=== PATIENT | female | born 1980 ===

== ENCOUNTER → 2020-05-16 13:44 | Outpatient (CLI) | payer OTHER, MEDICAID, SELFPAY ==
[2020-05-16 15:17] LABS: Add Manual Diff / Slide Review NO; Basophils Absolute Auto 100 /uL (0-100); Basophils Percent Auto 1.3 % (0-2); Eosinophils Absolute Auto 100 /uL (0-450); Eosinophils Percent Auto 0.8 % (2-4); Hematocrit 38.7 % (36-46); Lymphocytes Absolute Auto 2300 /uL (1100-4500); Mean Corpuscular HGB Conc 33.7 % (30-36); Mean Corpuscular Volume 88.8 fL (80-100); Monocytes Absolute Auto 600 /uL (0-900); Monocytes Percent Auto 6.7 % (3-14); Neutrophils Absolute Auto 6000 /uL (1500-7000); Neutrophils Percent Auto 66.2 % (50-75); Platelet Count 365 X10^3/uL (150-400); Red Blood Cell Count 4.35 X10^6/uL (4.0-5.2); White Blood Cell Count 9.1 X10^3/uL (4.5-11.0)
== END ==
PROVIDERS: Family Provider Internal Medicine; PCP Nurse Practitioner Family; Referring Provider Obstetrics & Gynecology; Visit Provider Obstetrics & Gynecology
DX: Z34.90 Encounter for supervision of normal pregnancy, unspecified, unspecified trimester (principal)
CPT/HCPCS: 36415; 85025; 86850; 86900; 86901

== ENCOUNTER → 2020-07-07 09:18 | Outpatient (CLI) | payer OTHER, MEDICAID, SELFPAY ==
[2020-07-07 10:23] LABS: HCG Quantitative /Beta subunit 1885.1 mIU/mL
== END ==
PROVIDERS: Family Provider Internal Medicine; PCP Nurse Practitioner Family; Referring Provider Nurse Practitioner Family; Visit Provider Obstetrics & Gynecology
DX: Z34.81 Encounter for supervision of other normal pregnancy, first trimester (principal)
CPT/HCPCS: 36415; 84702

== ENCOUNTER → 2020-07-09 10:17 | Outpatient (CLI) | payer OTHER, MEDICAID, SELFPAY ==
[2020-07-09 11:23] LABS: HCG Quantitative /Beta subunit 2169 mIU/mL
== END ==
PROVIDERS: Family Provider Internal Medicine; PCP Nurse Practitioner Family; Referring Provider Obstetrics & Gynecology; Visit Provider Obstetrics & Gynecology
DX: Z34.81 Encounter for supervision of other normal pregnancy, first trimester (principal)
CPT/HCPCS: 36415; 84702

== ENCOUNTER → 2020-07-13 07:57 | Outpatient (CLI) | payer OTHER, MEDICAID, SELFPAY ==
[2020-07-13 09:45] LABS: HCG Quantitative /Beta subunit 296.2 mIU/mL
== END ==
PROVIDERS: Family Provider Internal Medicine; PCP Nurse Practitioner Family; Referring Provider Obstetrics & Gynecology; Visit Provider Obstetrics & Gynecology
DX: O20.9 Hemorrhage in early pregnancy, unspecified (principal)
CPT/HCPCS: 36415; 84702

== ENCOUNTER → 2020-07-15 10:45 | Outpatient (CLI) | payer OTHER, MEDICAID, SELFPAY ==
[2020-07-15 12:22] LABS: HCG Quantitative /Beta subunit 84.9 mIU/mL
== END ==
PROVIDERS: Family Provider Internal Medicine; PCP Nurse Practitioner Family; Referring Provider Obstetrics & Gynecology; Visit Provider Obstetrics & Gynecology
DX: Z34.90 Encounter for supervision of normal pregnancy, unspecified, unspecified trimester (principal)
CPT/HCPCS: 36415; 84702

== ENCOUNTER → 2020-07-22 10:07 | Outpatient (CLI) | payer OTHER, MEDICAID, SELFPAY ==
[2020-07-22 12:16] LABS: HCG Quantitative /Beta subunit 8.5 mIU/mL
== END ==
PROVIDERS: Family Provider Internal Medicine; PCP Nurse Practitioner Family; Referring Provider Obstetrics & Gynecology; Visit Provider Obstetrics & Gynecology
DX: O03.9 Complete or unspecified spontaneous abortion without complication (principal)
CPT/HCPCS: 36415; 84702

== ENCOUNTER → 2020-09-03 12:24 | Outpatient (CLI) | payer OTHER, MEDICAID, SELFPAY ==
[2020-09-03 12:47] LABS: COVID19 -Nasal RAPID Negative (Negative)
== END ==
PROVIDERS: Family Provider Internal Medicine; PCP Nurse Practitioner Family; Referring Provider Physician Assistant; Visit Provider Physician Assistant
DX: Z20.828 Contact with and (suspected) exposure to other viral communicable diseases (principal)
CPT/HCPCS: 87635

== ENCOUNTER → 2020-09-15 10:01 | Outpatient (CLI) | payer OTHER, MEDICAID, SELFPAY ==
[2020-09-15 11:47] LABS: Free T4, Direct Thyroxine 0.96 ng/dL (0.78-2.19)
[2020-09-15 12:01] LABS: Thyroid Stimulating Hormone 2.01 uIU/mL (0.47-4.68)
== END ==
PROVIDERS: Family Provider Internal Medicine; PCP Nurse Practitioner Family; Referring Provider Obstetrics & Gynecology; Visit Provider Obstetrics & Gynecology
DX: Z34.81 Encounter for supervision of other normal pregnancy, first trimester (principal)
CPT/HCPCS: 36415; 84439; 84443

== ENCOUNTER → 2020-10-28 12:39 | Outpatient (CLI) | payer OTHER, MEDICAID, SELFPAY ==
[2020-10-28 14:47] LABS: Urine N gonorrhoeae NOT DETECTED
[2020-10-28 14:50] LABS: Urine Chlamydia NOT DETECTED
== END ==
PROVIDERS: Family Provider Internal Medicine; PCP Nurse Practitioner Family; Visit Provider Obstetrics & Gynecology
DX: Z34.81 Encounter for supervision of other normal pregnancy, first trimester (principal); Z76.89 Persons encountering health services in other specified circumstances; Z3A.10 10 weeks gestation of pregnancy
CPT/HCPCS: 87086; 87491; 87591

== ENCOUNTER → 2020-11-04 11:19 | Outpatient (CLI) | payer OTHER, MEDICAID, SELFPAY ==
[2020-11-04 12:13] LABS: Add Manual Diff / Slide Review NO; Basophils Absolute Auto 100 /uL (0-100); Basophils Percent Auto 1.1 % (0-2); Eosinophils Absolute Auto 0 /uL (0-450); Eosinophils Percent Auto 0.4 % (2-4); Hematocrit 36.3 % (36-46); Hemoglobin 12.4 g/dL (12.0-16.0); Lymphocytes Absolute Auto 1400 /uL (1100-4500); Lymphocytes Percent Auto 15.4 % (25-40); Mean Corpuscular HGB Conc 34.2 % (30-36); Mean Corpuscular Volume 87.6 fL (80-100); Monocytes Absolute Auto 500 /uL (0-900); Monocytes Percent Auto 5.2 % (3-14); Neutrophils Absolute Auto 7200 /uL (1500-7000); Neutrophils Percent Auto 77.9 % (50-75); Platelet Count 309 X10^3/uL (150-400); Red Blood Cell Count 4.14 X10^6/uL (4.0-5.2); Red Cell Distribution Width 13.2 % (11.6-14.8); White Blood Cell Count 9.2 X10^3/uL (4.5-11.0)
[2020-11-04 12:39] LABS: Appearance Urine UA CLEAR; Bilirubin Urine UA NEGATIVE (NEGATIVE); Color Urine UA YELLOW; Glucose Urine UA NEGATIVE (Negative); Ketones Urine UA NEGATIVE (NEGATIVE); Leukocyte Esterase Urine UA NEGATIVE (NEGATIVE); Nitrite Urine UA NEGATIVE (Negative); Occult Blood Urine UA NEGATIVE (Negative); Protein Urine UA NEGATIVE (Negative); Specific Gravity Urine UA <=1.005 (1.000-1.035); Urobilinogen Urine UA 0.2 E.U./dL (0.2)
[2020-11-04 12:47] LABS: pH Urine UA 6.5 (4.5-8.0)
[2020-11-04 14:01] LABS: Hepatitis B Surface Antigen NEGATIVE s/c (NEGATIVE); Rubella Antibody IgG 6.3 IU/mL (>15)
[2020-11-04 14:16] LABS: HIV 1 & 2 Ab/Ag 4th Gen Combo NEGATIVE (NEGATIVE); Hep C Virus Ab w/Reflex Quant NEGATIVE s/c (NEGATIVE)
[2020-11-05 09:15] LABS: RPR Screen Non Reactive (Non Reactive); Varicella IgG Antibody 530 index (Immune >165)
== END ==
PROVIDERS: Family Provider Internal Medicine; PCP Nurse Practitioner Family; Referring Provider Obstetrics & Gynecology; Visit Provider Obstetrics & Gynecology
DX: O09.521 Supervision of elderly multigravida, first trimester (principal); O26.21 Pregnancy care for patient with recurrent pregnancy loss, first trimester; Z36.0 Encounter for antenatal screening for chromosomal anomalies
CPT/HCPCS: 36415; 80055; 81003; 81420; 86787; 86803; 87086; 87389

== ENCOUNTER → 2021-01-06 10:47 | Outpatient (CLI) | payer OTHER, MEDICAID, SELFPAY ==
--- NOTE | 2021-01-06 10:48 | DI.US.S_ITS ---
PROCEDURE: US OB >= 14 WEEKS FETUS INDICATIONS: 20 week anatomy scan OUTSIDE/PRIOR DATING DATA: First dating scan (date and location): 09/30/2020 . Estimated date of delivery (ITZEL) from first dating scan: 05/24/2021 . TECHNIQUE: Real-time scanning was performed of the fetus, with image documentation and biometric measurements. Endovaginal scanning: No COMPARISON: [facility], , OB >= 14 WEEKS FETUS, 11/25/2020, 16:34. FINDINGS: General: A single living intrauterine gestation is present. Presentation: Breech. Placenta: Placental position is posterior , without previa. Amniotic fluid index: 10.5 cm, normal range is 5-24 cm. heart rate: 137 beats per minute. Maternal cervical canal: 4.9 cm long. Normal lower limit is 2.5 cm. Delete biometrics: Biparietal diameter: 20 weeks 4 days Head circumference: 20 weeks 2 days Abdominal circumference: 20 weeks 1 day Femur length: 20 weeks 1 day Estimated gestational age from initial scan: 20 weeks 1 day Composite gestational age from present scan: 20 weeks 2 days Estimated weight and percentile: 337 g; 47 percentile Measurement variability for biometric dating: +/- 7 days from 14 weeks to 15 weeks 6 days gestation, +/- 10 days from 16 weeks to 21 weeks 6 days gestation, +/- 2 weeks from 22 weeks to 27 weeks 6 days gestation, +/- 3 weeks for 28 weeks gestation or later. weight reference: 4500 g or EFW >90/95% is considered macrosomia or large for gestational age. EFW <10% is small for gestational age. EFW 5% or less is considered intra-uterine growth restriction. Anatomic survey: Neuro: Ventricles are non-dilated at less than 10 mm. Cisterna magna is normal at 3-11 mm. Cerebellum is normal in size and morphology. Nuchal skin fold: Normal at less than 6 mm between 14-21 weeks gestational age. Face: Nose and lips, facial profile are normal. Spine: No evidence for spina bifida. Heart: 4-chambered heart is present, with normal ventricular outflow tracts. Diaphragm: Diaphragm is intact. Stomach: Left-sided stomach is present. Kidneys: No hydronephrosis. Normal is less than 5 mm in 2nd trimester, less than 7 mm in 3rd trimester. Cord: 3-vessel cord has orthotopic insertion. Bladder: Normal in size. Extremities: All 4 extremities identified. IMPRESSION: 1. Normal interval growth. 2. Normal anatomic survey. Dictated by: Kamaljit Diallo [facility] Interpreted: Kalpesh Whitley MD on 01/06/2021 at 14:25 Approved by: Kalpesh Whitley M.D. on 01/06/2021 at 16:04
== END ==
PROVIDERS: Family Provider Internal Medicine; PCP Nurse Practitioner Family; Referring Provider Obstetrics & Gynecology; Visit Provider Obstetrics & Gynecology
DX: Z34.82 Encounter for supervision of other normal pregnancy, second trimester (principal); Z3A.20 20 weeks gestation of pregnancy
CPT/HCPCS: 76811

== ENCOUNTER → 2021-02-17 10:14 | Outpatient (CLI) | payer OTHER, MEDICAID, SELFPAY ==
[2021-02-17 12:14] LABS: GTT (PREG) 1 Hour PP 50gm Dose 132 mg/dL (76-139); Hematocrit 34.3 % (36-46); Hemoglobin 11.6 g/dL (12.0-16.0)
== END ==
PROVIDERS: Family Provider Internal Medicine; PCP Nurse Practitioner Family; Referring Provider Obstetrics & Gynecology; Visit Provider Obstetrics & Gynecology
DX: Z34.92 Encounter for supervision of normal pregnancy, unspecified, second trimester (principal)
CPT/HCPCS: 36415; 82950; 85014; 85018

== ENCOUNTER → 2021-04-07 13:08 | Outpatient (CLI) | payer OTHER, MEDICAID, SELFPAY ==
--- NOTE | 2021-04-07 13:09 | DI.US.S_ITS ---
PROCEDURE: US OB LIMITED INDICATIONS: Growth Ultrasound OUTSIDE/PRIOR DATING DATA: Last menstrual period (LMP): Not available. LMP-based estimated date of delivery (ITZEL): Not available First dating scan (date and location): 09/30/20 Estimated date of delivery (ITZEL) from first dating scan: 05/25/21 TECHNIQUE: Real-time scanning was performed of the fetus, with image documentation and biometric measurements. Endovaginal scanning: Not needed COMPARISON: Prior OB ultrasound studies for this . FINDINGS: General: A single living intrauterine gestation is present. Presentation: Breech. Placenta: Placental position is posterior , without previa. Amniotic fluid index: 12.6 cm, normal range is 5-24 cm. heart rate: 147 beats per minute. Maternal cervical canal: Not well seen due to deep vertex presentation of the fetus. biometrics: Biparietal diameter: 8.1 cm, 32 weeks 4 days Head circumference: 30.5 cm, 33 weeks 6 days Abdominal circumference: 27.3 cm, 31 weeks 3 days Femur length: 6.3 cm, 32 weeks 4 days Estimated gestational age from initial scan: 33 weeks 2 days Composite gestational age from present scan: 32 weeks 4 days Estimated weight and percentile: 1902 g, 13th percentile Measurement variability for biometric dating: +/- 7 days from 14 weeks to 15 weeks 6 days gestation, +/- 10 days from 16 weeks to 21 weeks 6 days gestation, +/- 2 weeks from 22 weeks to 27 weeks 6 days gestation, +/- 3 weeks for 28 weeks gestation or later. weight reference: 4500 g or EFW >90/95% is considered macrosomia or large for gestational age. EFW <10% is small for gestational age. EFW 5% or less is considered intra-uterine growth restriction. Other: Not applicable. IMPRESSION: Appropriate interval growth, no anomaly seen. The current weight is 1902 g, at the 13th percentile for current gestational age open (normal). Normal amniotic fluid volume. Delivery date projected to be centered on 05/24/21. Dictated by: Tony Isabel M.D. on 04/07/2021 at 14:50 Approved by: Tony Isabel M.D. on 04/07/2021 at 14:53
== END ==
PROVIDERS: Family Provider Internal Medicine; PCP Nurse Practitioner Family; Referring Provider Obstetrics & Gynecology; Visit Provider Obstetrics & Gynecology
DX: Z34.83 Encounter for supervision of other normal pregnancy, third trimester (principal); Z3A.32 32 weeks gestation of pregnancy
CPT/HCPCS: 76815

== ENCOUNTER 2021-04-07 15:15 | Outpatient (CLI) | payer OTHER, MEDICAID, SELFPAY ==
--- NOTE | 2021-04-07 15:21 | DI.US.S_ITS ---
PROCEDURE: US OB LIMITED INDICATIONS: INTRAUTERINE GROWTH RESTRICTION. CORD DOPPLER/BIOPHYSICAL OUTSIDE/PRIOR DATING DATA: Last menstrual period (LMP): Unknown. LMP-based estimated date of delivery (ITZEL): Unknown. First dating scan (date and location): 09/30/2020. Estimated date of delivery (ITZEL) from first dating scan: 05/25/2021. TECHNIQUE: Real-time scanning was performed of the fetus, with image documentation. Biophysical profile performed. Umbilical artery Doppler also performed. Endovaginal scanning: Not performed. COMPARISON: [facility], OB LIMITED, 04/07/2021, 13:29. FINDINGS: A single living intrauterine gestation is present. Presentation: Breech. Placenta: Placental position is posterior. Amniotic fluid index: 12.1 cm, normal range is 5-24 cm. heart rate: 139 beats per minute. Maternal cervical canal: Not well seen. Estimated gestational age from initial scan: 33 weeks 2 days. Biophysical profile: Tone: 2: Movement: 2 Respiration: 2 Largest pocket: 2 Umbilical artery S/D ratio: 2.4, 2.6, 2.4. Preserved diastolic flow. IMPRESSION: 1. Napoles living intrauterine at 33 weeks 2 days based on prior ultrasound. 2. Normal placenta and amniotic fluid. 3. Normal biophysical profile. Score 8/8. Umbilical artery Doppler is within normal limits. Dictated by: Patrick Robertson M.D. on 04/07/2021 at 16:32 Approved by: Patrick Robertson M.D. on 04/07/2021 at 16:39
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
== END 2021-04-07 16:49 | disposition home or self-care (01) ==
LOC: LABOR 16:08 → OB 04-11 07:45
PROVIDERS: Family Provider Internal Medicine; PCP Nurse Practitioner Family; Referring Provider Obstetrics & Gynecology; Visit Provider Obstetrics & Gynecology
DX: O36.5930 Maternal care for other known or suspected poor fetal growth, third trimester, not applicable or unspecified (principal); O09.523 Supervision of elderly multigravida, third trimester; Z3A.34 34 weeks gestation of pregnancy
CPT/HCPCS: 59025; 76815; 76819; G0378; G0379

== ENCOUNTER → 2021-04-21 09:27 | Outpatient (CLI) | payer OTHER, MEDICAID, SELFPAY ==
[2021-04-22 10:25] LABS: Strep Grp B PCR NEG for Grp B Strep
== END ==
PROVIDERS: Family Provider Internal Medicine; PCP Nurse Practitioner Family; Referring Provider Obstetrics & Gynecology; Visit Provider Obstetrics & Gynecology
DX: Z34.03 Encounter for supervision of normal first pregnancy, third trimester (principal); Z3A.36 36 weeks gestation of pregnancy
CPT/HCPCS: 87653

== ENCOUNTER 2021-04-21 11:03 | Outpatient (CLI) | payer OTHER, MEDICAID, SELFPAY | END 2021-04-21 11:43 | disposition home or self-care (01) | LOC: LABOR 11:10 → OB 04-24 09:48 | PROVIDERS: Family Provider Internal Medicine; PCP Nurse Practitioner Family; Referring Provider Obstetrics & Gynecology; Visit Provider Obstetrics & Gynecology | DX: O36.5930 Maternal care for other known or suspected poor fetal growth, third trimester, not applicable or unspecified (principal); O09.513 Supervision of elderly primigravida, third trimester; Z3A.36 36 weeks gestation of pregnancy | CPT/HCPCS: 59025; 87653; G0378; G0379 ==

== ENCOUNTER → 2021-04-25 10:09 | Outpatient (CLI) | payer OTHER, MEDICAID, SELFPAY ==
--- NOTE | 2021-04-25 10:11 | DI.US.S_ITS ---
PROCEDURE: US OB LIMITED INDICATIONS: GROWTH OUTSIDE/PRIOR DATING DATA: Last menstrual period (LMP): Unknown . LMP-based estimated date of delivery (ITZEL): Unknown First dating scan (date and location): 09/30/20 . Estimated date of delivery (ITZEL) from first dating scan: 05/22/21 . TECHNIQUE: Real-time scanning was performed of the fetus, with image documentation and biometric measurements. Endovaginal scanning: Not performed COMPARISON: [facility], OB LIMITED, 04/07/2021, 13:29. [facility], OB >= 14 WEEKS FETUS, 01/06/2021, 10:11. [facility] OB >= 14 WEEKS FETUS, 11/25/2020, 16:34. [facility] OB <= 14 WEEKS FETUS, 10/28/2020, 9:05. [facility], OB <= 14 WEEKS FETUS, 09/30/2020, 11:31. [facility] OB LIMITED, 04/07/2021, 15:40. FINDINGS: General: A single living intrauterine gestation is present. Presentation: Breech. Placenta: Placental position is posterior , without previa. Amniotic fluid index: 6.9 cm, normal range is 5-24 cm. Largest pocket measures 3.6 cm heart rate: 126 beats per minute. Maternal cervical canal: Not well visualized sonographically. biometrics: Biparietal diameter: 8.4 cm, 33 weeks 5 days Head circumference: 31.5 cm, 35 weeks 2 days Abdominal circumference: 29.4 cm, 33 weeks 2 days Femur length: 7.1 cm, 36 weeks 2 days Estimated gestational age from initial scan: 36 weeks 1 day Composite gestational age from present scan: 34 weeks 5 days Estimated weight and percentile: 2431 g, 13th percentile Measurement variability for biometric dating: +/- 7 days from 14 weeks to 15 weeks 6 days gestation, +/- 10 days from 16 weeks to 21 weeks 6 days gestation, +/- 2 weeks from 22 weeks to 27 weeks 6 days gestation, +/- 3 weeks for 28 weeks gestation or later. weight reference: 4500 g or EFW >90/95% is considered macrosomia or large for gestational age. EFW <10% is small for gestational age. EFW 5% or less is considered intra-uterine growth restriction. Other: Not applicable. IMPRESSION: Single living intrauterine fetus in breech presentation. KIM measures 6.9 cm. Estimated weight 2431 g, 13th percentile. Dictated by: Koko Smith M.D. on 04/25/2021 at 11:51 Approved by: Koko Smith M.D. on 04/25/2021 at 11:54
== END ==
PROVIDERS: Family Provider Internal Medicine; PCP Nurse Practitioner Family; Referring Provider Obstetrics & Gynecology; Visit Provider Obstetrics & Gynecology
DX: O36.5930 Maternal care for other known or suspected poor fetal growth, third trimester, not applicable or unspecified (principal); Z3A.34 34 weeks gestation of pregnancy
CPT/HCPCS: 76815

== ENCOUNTER 2021-04-28 11:53 | Observation (INO) | payer OTHER, MEDICAID, SELFPAY ==
[2021-04-28] MEDS: TERBUTALINE 1 MG/ML VIAL 0.25 MG SUBCUT (12:56)
--- NOTE | 2021-04-28 13:14 | PM.PROC.1 ---
Procedures Date/Time Date of procedure: 04/28/21 Time of procedure: 13:15 General Procedure description: Patient comes in at 36 weeks with breech presentation fetus for external cephalic version. Patient had a reactive nonstress test. She had a IV access placed. She received 0.25 mg terbutaline subQ. Ultrasound was done that confirms breech presentation. Posterior placenta. Fluid is adequate but not excessive. Consent form was reviewed with the patient. She understands the baby may not turn. She understands that if the baby does not turn she will need a . There is a risk of onset of labor, placental separation or rupture membranes that could require delivery of the baby at this hospitalization. Consent form signed and questions answered. Attempt x2 was made to turn the baby without any significant motion of the baby. Decision was made not to do a 3rd attempt. Patient will be monitored for 1 hour. When she goes home precautions reviewed to call for decreased movement, vaginal bleeding, rupture membranes, onset of contractions. Patient will be scheduled for section
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
== END 2021-04-28 14:30 | disposition home or self-care (01) ==
PROVIDERS: Admitting Provider Specialist; Family Provider Internal Medicine; PCP Nurse Practitioner Family; Referring Provider Specialist; Visit Provider Specialist
DX: O32.1XX0 Maternal care for breech presentation, not applicable or unspecified (principal); O36.5930 Maternal care for other known or suspected poor fetal growth, third trimester, not applicable or unspecified; Z3A.37 37 weeks gestation of pregnancy
CPT/HCPCS: 59025; 59412; 76815; 96372; G0378; G0379

== ENCOUNTER 2021-05-05 15:02 | Outpatient (CLI) | payer OTHER, MEDICAID, SELFPAY | END 2021-05-05 15:44 | disposition home or self-care (01) | LOC: LABOR 15:48 → OB 05-08 13:03 | PROVIDERS: Family Provider Internal Medicine; PCP Nurse Practitioner Family; Referring Provider Obstetrics & Gynecology; Visit Provider Obstetrics & Gynecology | DX: O36.8130 Decreased fetal movements, third trimester, not applicable or unspecified (principal); Z3A.38 38 weeks gestation of pregnancy | CPT/HCPCS: 59025; G0378; G0379 ==

== ENCOUNTER 2021-05-12 05:53 | Inpatient (IN) | payer OTHER, MEDICAID, SELFPAY ==
[2021-05-12 06:43] LABS: Add Manual Diff / Slide Review NO; Basophils Absolute Auto 100 /uL (0-100); Basophils Percent Auto 0.9 % (0-2); Eosinophils Absolute Auto 0 /uL (0-450); Eosinophils Percent Auto 0.5 % (2-4); Hematocrit 34.5 % (36-46); Hemoglobin 11.9 g/dL (12.0-16.0); Lymphocytes Absolute Auto 2000 /uL (1100-4500); Mean Corpuscular HGB Conc 34.4 % (30-36); Mean Corpuscular Hemoglobin 30.2 PG (26-34); Mean Corpuscular Volume 87.7 fL (80-100); Monocytes Absolute Auto 700 /uL (0-900); Monocytes Percent Auto 7.4 % (3-14); Neutrophils Absolute Auto 7000 /uL (1500-7000); Neutrophils Percent Auto 71.2 % (50-75); Platelet Count 224 X10^3/uL (150-400); Red Blood Cell Count 3.94 X10^6/uL (4.0-5.2); Red Cell Distribution Width 13.3 % (11.6-14.8); White Blood Cell Count 9.8 X10^3/uL (4.5-11.0)
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
[2021-05-12] MEDS: LACTATED RINGERS 1,000 ML 999 ML IV ×3 (07:14→10:28)
[2021-05-12] MEDS: CITRIC ACID/SODIUM CITRATE 15 ML SOLUTION 30 ML PO (07:14)
--- NOTE | 2021-05-12 07:16 | SUR.OPER ---
Supine on Padded OR bed, head on pillow, safety belt at thigh, arms secured on padded arm boards at <90 degrees abduction. Bump under right buttock. Legs uncrossed with pillow under knees, gel pad to heels, tape over blanket to lower legs.
--- NOTE | 2021-05-12 07:27 | PM.PREOP ---
Pre-operative Note COVID-19 COVID-19 status: Negative Result date/Date tested (Pos, Neg/Pending): 05/12/21 Interval Note History & Physical reviewed/Exam performed by Physician: Yes Changes to H&P: No
[2021-05-12 07:29] LABS: COVID19 - ADMIT (NP swab/PCR) Negative (Negative)
[2021-05-12] MEDS: CEFAZOLIN 1 GM VIAL 2 GM IV (07:56)
--- NOTE | 2021-05-12 08:27 | SUR.OPER ---
Live female at [id number]
[2021-05-12 09:05] VITALS: BP 95/64; PULSE 68; RESP 10; TEMP 35.8; O2SAT 100
[2021-05-12 09:10] VITALS: BP 104/62; PULSE 72; RESP 18; O2SAT 100
[2021-05-12 09:15] VITALS: BP 96/57; PULSE 77; RESP 12; O2SAT 100
[2021-05-12 09:20] VITALS: BP 108/64; PULSE 69; RESP 10; O2SAT 99
[2021-05-12] MEDS: OXYCODONE IR 5 MG TABLET PO (09:21)
[2021-05-12 09:25] VITALS: BP 112/63; PULSE 72; RESP 14; O2SAT 100
--- NOTE | 2021-05-12 09:31 | P.OP_ITS ---
Operative Date/Time/Diagnoses Date of procedure: 05/12/21 Time of procedure: 08:00 Pre-op diagnosis: Intrauterine gestation, Napoles, term, breech presentation Post-op diagnosis: same Procedure & Clinicians Procedure: Primary section, low transverse cervical Same procedure as scheduled: Yes Indications: Logan Garcia is a 40 year old A2 ITZEL 05/19/2021 admitted now at 39+0 for primary due to persistent breech presentation following an unsuccessful attempt at ECV two weeks ago. course has been notable for AMA status and an SGA infant with reassuring assessments to date. Surgeon: Gutierrez Barksdale Scientific Advisor: Tamar Ruffin Reason for Scientific Advisor: Scientific Advisor required for retraction, and the safe, efficient performance of this procedure. Anesthesia Type: Spinal Operative Notes Findings: Viable female with a birthweight of 2924 gms (6# 7.1 oz.) and Apgars of 8/9. Closure Type: primary Applied: Catheter Estimated Blood Loss (mL): 400 Blood products transfused: none Procedure in detail: With the patient under satisfactory spinal block anesthetic in the dorsal supine position, the Carey catheter was inserted in the bladder and preparations made for primary delivery. A pre-surgical safety time-out was taken her [facility] Main OR protocol. Once adequate anesthesia was assured a 14 cm transverse Pfannenstiel incision was made in the skin and carried down to the deep fascia. The deep fascia was incised transversely the rectus abdominal I bluntly and the peritoneum entered sharply without difficulty. The bladder was mobilized downward after creation of the bladder flap and hysterotomy performed with clear fluid noted. The infant was delivered from the marilu breech presentation without difficulty and after 60 seconds delay, the umbilical cord was doubly clamped and cut. Cord blood was obtained for routine testing and the placenta was removed with gentle traction on the cord and massage of the uterus. The endometrial cavity was cleared with a dry lap followed by a moist lap. Ring forceps were placed at both angles and in the midline of the lower portion of the hysterotomy incision. #1 Chromic in a running interlocking stitch was used for the 1st layer closure followed by a #1 Chromic with a running interlocking imbricating suture. The bladder flap was closed with 2 0 Vicryl in a running stitch. Hemostasis was excellent and no additional hemostatic sutures required. The pelvis was irrigated thoroughly and absent any significant bleeding the anterior peritoneum was closed with 2-0 Vicryl in a running stitch. Fascia was closed with 1. Vicryl initiated at either angle and tying separately no the midline. Subcutaneous tissues were brought together with 2-0 Vicryl in running stitch and the skin was closed with 4-0 Monocryl in a subcuticular closure. Appropriate dressing was applied and the patient transferred to PACU for a period of recovery having tolerated the procedure well. Complications: none [place] Baby 1: Infant Gender: Female Presentation: breech Details: marilu Placental Delivery Description: Expressed and Normal Configuration Cord Vessel Description: 3 Vessels score (1 min): 8 score (5 min): 9 weight: 6 lb 7.141 oz Post-operative Condition: stable Disposition: PACU Aftercare: routine postop
[2021-05-12 09:36] VITALS: BP 113/58; PULSE 60; RESP 17; TEMP 35.9; O2SAT 100
--- NOTE | 2021-05-12 10:10 | SUR.PHASEI ---
PATIENT TRANSF TO RM 2 IN STABLE CONDITION AT 0938
[2021-05-12] MEDS: OXYCODONE IR 10 MG TABLET PO ×3 (13:38→23:17)
[2021-05-12] MEDS: ONDANSETRON 8 MG in SODIUM CHLORIDE 0.9% 100 ML 208 ML IV (16:49)
[2021-05-12] MEDS: ACETAMINOPHEN 325 MG TABLET 650 MG PO (19:13)
[2021-05-12] MEDS: CALCIUM CARBONATE 500 MG TAB 1000 MG PO (21:08)
[2021-05-12] MEDS: MORPHINE 4 MG/ML INJ IV (21:10)
[2021-05-12] MEDS: diphenhydrAMINE 50 MG/ML VIAL 25 MG IV (21:10)
[2021-05-13] MEDS: ACETAMINOPHEN 325 MG TABLET 650 MG PO ×4 (02:39→20:45)
[2021-05-13] MEDS: OXYCODONE IR 10 MG TABLET PO ×5 (03:20→22:05)
[2021-05-13] MEDS: DOCUSATE 100 MG CAPSULE 200 MG PO (07:42)
[2021-05-13 09:21] LABS: Add Manual Diff / Slide Review NO; Basophils Absolute Auto 100 /uL (0-100); Basophils Percent Auto 0.5 % (0-2); Eosinophils Absolute Auto 100 /uL (0-450); Eosinophils Percent Auto 0.5 % (2-4); Hematocrit 33.2 % (36-46); Hemoglobin 11.2 g/dL (12.0-16.0); Lymphocytes Absolute Auto 1800 /uL (1100-4500); Lymphocytes Percent Auto 14.7 % (25-40); Mean Corpuscular HGB Conc 33.7 % (30-36); Mean Corpuscular Hemoglobin 30.1 PG (26-34); Mean Corpuscular Volume 89.3 fL (80-100); Monocytes Absolute Auto 800 /uL (0-900); Monocytes Percent Auto 6.4 % (3-14); Neutrophils Absolute Auto 9300 /uL (1500-7000); Neutrophils Percent Auto 77.9 % (50-75); Platelet Count 228 X10^3/uL (150-400); Red Blood Cell Count 3.71 X10^6/uL (4.0-5.2); Red Cell Distribution Width 13.3 % (11.6-14.8)
[2021-05-13] MEDS: PRENATAL VIT,CALC/IRON/FOLIC 1 TABLET 1 TAB PO (09:32)
--- NOTE | 2021-05-13 10:31 | P.PNOB_ITS ---
Subjective - OB Subjective Patient comments: incisional pain baby status: doing well feeding status: exclusively breast feeding Date Patient Seen: 05/13/21 Time Patient Seen: 10:32 Interval history: Postoperative primary section for breech presentation. Patient is is ambulatory. She is having incisional pain. She denies nausea. No headaches, scotomata, epigastric pain. Exam Vital Signs (past 8 hours): Blood pressure 126/78, pulse is 74, temperature 98.8? Oxygen Delivery Method Room Air Oxygen Flow Rate 0 Narrative Exam Narrative: Abdomen is soft, nontender. Uterus is firm, at U-1, appropriately tender. Dressing is clean, dry, intact. Mild lochia. Extremities without edema and nontender. Objective Labs Result Diagrams: 05/13/21 09:15 Labs: Laboratory Results - last 24 hr 05/13/21 09:15 WBC 12.0 H RBC 3.71 L Hgb 11.2 L Hct 33.2 L MCV 89.3 MCH 30.1 MCHC 33.7 RDW 13.3 Plt Count 228 Neut % (Auto) 77.9 H Lymph % (Auto) 14.7 L [place] % (Auto) 6.4 Eos % (Auto) 0.5 L Baso % (Auto) 0.5 Neut # (Auto) 9300 H Lymph # (Auto) 1800 [place] # (Auto) 800 Eos # (Auto) 100 Baso # (Auto) 100 Assessment & Plan Assessment and Plan (1) Delivery by section for breech presentation: Status: Acute Plan day: 1 plan OB: routine postop care Time Spent With Patient Time: Total time spent is greater than 50% in coordination of care (as documented) at patient's floor/unit and/or counseling patient: Time with patient: less than 15 minutes
[2021-05-13] MEDS: SIMETHICONE 80 MG TABLET PO (11:28)
[2021-05-13] MEDS: OXYCODONE IR 5 MG TABLET PO (14:32)
[2021-05-13] MEDS: CALCIUM CARBONATE 500 MG TAB 1000 MG PO (20:18)
[2021-05-14] MEDS: ACETAMINOPHEN 325 MG TABLET 650 MG PO ×3 (02:16→14:39)
[2021-05-14] MEDS: OXYCODONE IR 10 MG TABLET PO ×5 (02:16→18:16)
[2021-05-14] MEDS: SIMETHICONE 80 MG TABLET PO (02:20)
[2021-05-14 07:13] VITALS: BP 113/58; PULSE 60; RESP 17; TEMP 35.9
[2021-05-14] MEDS: DOCUSATE 100 MG CAPSULE 200 MG PO (08:57)
[2021-05-14] MEDS: PRENATAL VIT,CALC/IRON/FOLIC 1 TABLET 1 TAB PO (08:57)
--- NOTE | 2021-05-14 09:50 | P.DS_ITS ---
Discharge Providers Provider Date of admission: 05/12/21 05:53 Discharge Date: 05/14/21 Primary care physician: KASIE Law Consults: 05/12/21 11:23 Consult to Statement Services Representative Routine Comment: Discharge provider: Gutierrez Barksdale MD Summary Hospital Course Date Patient Seen: 05/14/21 Time Patient Seen: 09:51 Diagnoses: Intrauterine , Napoles, term, breech presentation, delivered Hospital Course: On the morning of 05/12/2021 the patient underwent an uneventful primary section by low transverse cervical incision due to persistent breech presentation following a failed external cephalic version at 37 weeks EGA, she delivered a viable female Apgars of 8 and 9 with a weight of 2924 g (6 lb 7.1 oz). A detailed description of the operation is included on my operative note of that date. Following delivery the patient excessive experienced prompt return of bowel and bladder function, she is ambulating independently, is tolerating regular diet, and her pain is reasonably well controlled with 10 mg of Oxycodone every 4 hours orally. First morning hemoglobin and hematocrit were appropriate for observed blood losses and her lochia following delivery is been minimal. She has initiated which seems to be going reasonably well but her infant has lost nearly 400 g and may remain in the nursery under care following the patient is discharged to [facility]. Prior to discharge she has been counseled regarding precautionary symptoms, limitations activity, medications, and plans for follow- up. Medications at discharge will include calcium carbonate 1000 mg p.o. as n eeded heartburn, docusate sodium 100 mg capsules p.o. b.i.d. as needed constipation vitamins 1 p.o. q.d., and Percocet 1-2 tablets every 4-6 hours as needed pain, dispense 45 with no refills. Follow-up will be in 1 week for removal of the Aquacel dressing and incision check at that time. Her chosen mode of contraception following delivery is not yet been decided. Peripartum Data Infant Delivery Method: Section Laceration Description: None Episiotomy description: None complications: none [place] 1: Gender: Female Disposition of : other (Remains in nursery due to weight loss) Discharge Diagnosis (1) Delivery by section for breech presentation: Status: Acute Status at Discharge Cognitive/behavioral status at discharge: oriented Functional status at discharge: independent ambulation Overall status at discharge: patient is progressing back to baseline Time Spent with Patient Time attestation: Total time spent providing and/or coordinating discharge services: Time spent: Less than 30 minutes Objective Labs Result Diagrams: 05/13/21 09:15 Exam Vital Signs (past 8 hours): Oxygen Delivery Method Room Air Oxygen Flow Rate 0 Const General: cooperative Nutritional Appearance: average body habitus Orientation: alert and oriented x3 HENMT Head: normal to inspection Eyes General: appearance normal, both eyes and all related structures Resp Effort & Inspection: normal respiratory effort and able to speak in complete sentences Auscultation: clear to auscultation bilaterally Cardio Rate: regular rate Rhythm: regular rhythm Heart Sounds: S1 normal, S2 normal and no murmurs GI Inspection: normal to inspection and incision (Dressing dry and intact. Fresh A quacel dressing applied prior to D/C.) Palpation: soft, no hepatosplenomegaly, mass (Firm NT uterus, U-6) and tender (Diffuse, mild to moderate, bilateral lower quadrant) Auscultation: normoactive bowel sounds Extrem General: No calf tenderness and edema (Minimal, bilateral lower extremities) Psych Appearance: grossly normal Mental Status: mental status grossly normal Speech and Movement: speech and movement normal Mood: congruent mood Affect: normal affect Attitude: cooperative Thought Process: normal Thought Content: normal Judgment: judgment good Discharge Plan Discharge Plan Patient Disposition: Home Provider Discharge Comment: See written instructions. Your follow-up will be in 1 week to remove the incision dressing and evaluate for pain control and recuperation progress. Discharge orders & Medications Prescriptions: New oxycodone-acetaminophen [Percocet] 5-325 mg tablet 1 tab PO Q4H PRN (Reason: pain) Qty: 45 RF: 0 Continued prenat.vits,ger,lbd-mnck-cygwd Tablet 1 tab PO DAILY Qty: 90 RF: 3 calcium carbonate [Tums Ultra] 400 mg calcium (1,000 mg) tablet,chewable 400 mg PO DAILY RF: 0 docusate sodium 100 mg capsule 100 mg PO BID Qty: 60 RF: 2 Follow up/Referrals: Sarah Grove ARNP [Primary Care Provider] - Gutierrez Barksdale MD [Physician] - (To make an appointment for [address] Barksdale for dressing removal. Call [phone] ) Diet/Activity/Treatments Diet: Diet as Tolerated Activity: As tolerated Skin/Wound/Dressing Care Report to your healthcare provider any signs of infection, such as:: chills, fever, increased pain, unusual drainage and unusual redness Dressing: To be removed in the office in 1 week Visit Report/Discharge Packet Instructions: DI for , DI for Prescription Opioid Use Stand Alone Forms: Discharge: Care Discharge Data Primary Care Provider: Sarah Grove
[2021-05-14 18:10] VITALS: BP 113/58; PULSE 60; RESP 17; TEMP 35.9
== END 2021-05-14 19:00 | disposition home or self-care (01) | DRG 540 ==
PROVIDERS: Admitting Provider Obstetrics & Gynecology; Family Provider Internal Medicine; PCP Nurse Practitioner Family; Referring Provider Obstetrics & Gynecology; Visit Provider Obstetrics & Gynecology
PROC: 10D00Z1 Extraction of Products of Conception, Low, Open Approach (ICD-10-PCS; CPT 59514; principal; 2021-05-12 07:45)
DX: O64.1XX0 Obstructed labor due to breech presentation, not applicable or unspecified (principal); Z3A.39 39 weeks gestation of pregnancy; Z37.0 Single live birth; Z20.822 Contact with and (suspected) exposure to COVID-19
CPT/HCPCS: 36415; 59050; 59514; 85025; 86850; 86900; 86901; 87635; C9803; J0690; J1200; J1885; J2270; J2274; J2405; J2590

== ENCOUNTER → 2021-05-27 11:50 | Outpatient (CLI) | payer OTHER, MEDICAID, SELFPAY ==
[2021-05-27 13:18] LABS: Appearance Urine UA CLEAR; Bilirubin Urine UA NEGATIVE (NEGATIVE); Color Urine UA YELLOW; Glucose Urine UA NEGATIVE (Negative); Ketones Urine UA NEGATIVE (NEGATIVE); Leukocyte Esterase Urine UA NEGATIVE (NEGATIVE); Nitrite Urine UA NEGATIVE (Negative); Occult Blood Urine UA NEGATIVE (Negative); Protein Urine UA NEGATIVE (Negative); Specific Gravity Urine UA <=1.005 (1.000-1.035); Urobilinogen Urine UA 0.2 E.U./dL (0.2)
[2021-05-27 13:19] LABS: pH Urine UA 6.5 (4.5-8.0)
== END ==
PROVIDERS: Family Provider Internal Medicine; PCP Nurse Practitioner Family; Referring Provider Obstetrics & Gynecology; Visit Provider Obstetrics & Gynecology
DX: N39.0 Urinary tract infection, site not specified (principal)
CPT/HCPCS: 81003

== ENCOUNTER → 2022-09-07 14:29 | Outpatient (CLI) | payer OTHER, MEDICAID, SELFPAY ==
--- NOTE | 2022-09-07 14:32 | DI.US.S_ITS ---
PROCEDURE: US ABDOMEN LIMITED INDICATIONS: eval palpable epigastric mass with tenderness/pain TECHNIQUE: Real-time focused scanning was performed of the abdomen, with image documentation. COMPARISON: None. FINDINGS: Liver measures 13 cm. Overall echotexture is within normal limits. Multiple cysts, including a septated cyst measuring up to 1.5 cm. Hyperechoic lesion in the right lobe measuring 1.5 x 1.4 x 1.3 cm. Gallbladder is within normal limits. CBD measures 5 mm. Biliary tree within normal limits. Pancreas within normal limits. No pathologic free fluid. At the area of epigastric clinical concern, no evidence of a soft tissue abnormality. IMPRESSION: No sonographic soft tissue abnormality at the epigastric area of clinical concern. Incidentally noted hepatic cysts and a hyperechoic right lobe lesion. This is most commonly a cavernous hemangioma, but would require liver protocol CT or MR for confirmation. Dictated by: Clem Mojica M.D. on 09/07/2022 at 16:41 Approved by: Clem Mojica M.D. on 09/07/2022 at 16:43
== END ==
PROVIDERS: PCP Registered Nurse Diabetes Educator; Referring Provider Registered Nurse Diabetes Educator; Visit Provider Registered Nurse Diabetes Educator
DX: K76.89 Other specified diseases of liver (principal); R19.06 Epigastric swelling, mass or lump
CPT/HCPCS: 76705

== ENCOUNTER → 2022-09-21 13:35 | Outpatient (CLI) | payer OTHER, MEDICAID, SELFPAY ==
--- NOTE | 2022-09-21 | DI.MRI.S_ITS ---
PROCEDURE: MR ABDOMEN WO/W CON INDICATIONS: Liver disease TECHNIQUE: Coronal HASTE, axial 2D FLASH in- and [id number]-wf-lrtcm; axial breath-hold T2 FSE. Dynamic axial VIBE during the administration of contrast; post-contrast coronal VIBE or 2D FLASH with fat saturation from the hepatic dome to the iliac crests. Acted diffusion weighted imaging and ADC may be performed. COMPARISON: [facility], US, US ABDOMEN LIMITED, 09/07/2022, 15:06. FINDINGS: Image quality: Excellent. Lung bases: No mass in the epigastric region. No suspicious enhancement. No restricted diffusion. No basal pleural effusions. Heart size is normal. Solid organs: Liver is normal in size. Segment 6 benign hemangioma measuring 1.4 cm, (25/36). There are several small benign cysts. Gallbladder is unremarkable. Biliary system is non dilated. Pancreas is normal in morphology. Spleen is normal in size and enhancement. No adrenal nodules. Both kidneys demonstrate normal size and enhancement, without hydronephrosis. Nodes and vessels: No retroperitoneal or mesenteric adenopathy by size criteria. Aorta and inferior vena cava are normal in size. Bowel and peritoneum: Unenhanced bowel loops are normal in caliber. Prominent stool in the colon. No free fluid. Bones and soft tissues: No ventral hernias. Bone marrow is normal in overall signal. IMPRESSION: 1. No mass in the epigastric region. 2. Small benign hemangioma in the liver measuring 1.4 cm. Small benign hepatic cysts. Dictated by: Patrick Robertson M.D. on 09/21/2022 at 16:25 Approved by: aPtrick Robertson M.D. on 09/21/2022 at 16:32
== END ==
PROVIDERS: PCP Registered Nurse Diabetes Educator; Referring Provider Registered Nurse Diabetes Educator; Visit Provider Registered Nurse Diabetes Educator
DX: K76.89 Other specified diseases of liver (principal); D18.09 Hemangioma of other sites
CPT/HCPCS: 74183

== ENCOUNTER → 2025-03-17 06:58 | Outpatient (CLI) | payer BC, SELFPAY ==
[2025-03-17 07:47] LABS: Hematocrit 38.4 % (36-46); Hemoglobin 12.9 g/dL (12.0-16.0); Mean Corpuscular HGB Conc 33.5 % (30-36); Mean Corpuscular Hemoglobin 28.7 PG (26-34); Mean Corpuscular Volume 85.8 fL (80-100); Platelet Count 345 X10^3/uL (150-400)
[2025-03-17 08:21] LABS: Alanine Aminotransferase 20 IU/L (<35); Albumin 4.7 g/dL (3.5-5.0); Albumin Globulin Ratio 1.6 (1.0-2.8); Alkaline Phosphatase 77 U/L (38-126); Blood Urea Nitrogen 10 mg/dL (7-17); Calcium 9.5 mg/dL (8.4-10.2); Carbon Dioxide 24 mmol/L (22-32); Chloride 102 mmol/L (98-107); Cholesterol 205 mg/dL (140-199); Estimated Glomerular Filt Rate > 60 mL/min (>60); Globulin 3.0 g/dL (1.7-4.1); Glucose 85 mg/dL (70-99); HDL Cholesterol 91 mg/dL (40-60); HEMOLYSIS 23 (0-50); Magnesium 1.9 mg/dL (1.6-2.3); Potassium 3.9 mmol/L (3.4-5.1); Sodium 137 mmol/L (137-145); Total Protein 7.7 g/dL (6.3-8.2); Triglycerides 65 mg/dL (35-150)
[2025-03-17 08:35] LABS: Free T4, Direct Thyroxine 1.08 ng/dL (0.78-2.19)
[2025-03-17 08:49] LABS: Thyroid Stimulating Hormone 1.18 uIU/mL (0.47-4.68)
== END ==
PROVIDERS: PCP Registered Nurse Diabetes Educator; Referring Provider Registered Nurse Diabetes Educator; Visit Provider Registered Nurse Diabetes Educator
DX: Z00.00 Encounter for general adult medical examination without abnormal findings (principal); R00.2 Palpitations
CPT/HCPCS: 36415; 80053; 80061; 83735; 84439; 84443; 85027

== ENCOUNTER → 2025-03-24 07:56 | Outpatient (CLI) | payer BC, SELFPAY ==
--- NOTE | 2025-03-24 07:57 | DI.ECHO.S_ITS ---
[place] +---------+ Hospital : : [address] : : [place] : : [id number] : : Phone: [phone] Echocardiogram Report + + :Name: ELVIA KUHN Study Date: 03/24/2025 Height: 63 in : :[facility] ReadingLocation: Weight: 155 lb : : Gender: Female BSA: 1.7 m2 : :: 1980 Age: 44 yrs BP: 132/94 mmHg: :Reason For Study: ATRIAL ENLARGEMENT : :Ordering Physician: ROOPA, : :WILLIAN Performed By: Vignesh Edwards : :Referring: WILLIAN BLAS : + + Interpretation Summary The patient was in normal sinus rhythm during the exam. The patient had frequent PVCs during the exam. The left ventricle is normal in size. The left ventricular ejection fraction is normal. The ejection fraction is estimated to be 55-60%. No regional wall motion abnormalities however during PVCs, significant LV dyssynchrony seen. Normal diastolic function. The right ventricle is normal in size and function. No significant valvular pathology seen. The IVC is of normal diameter and collapses greater than 50% with a sniff. This suggests a low right atrial pressure of 3 mm Hg. Procedure: A two-dimensional transthoracic echocardiogram with color flow and Doppler was performed. The study quality was technically good. There is no prior echocardiogram noted for this patient. The patient had frequent PVCs during the exam. The patient was in normal sinus rhythm during the exam. Left Ventricle: The left ventricle is normal in size. There is normal left ventricular wall thickness. There is no thrombus. The ejection fraction is estimated to be 55-60%. The left ventricular ejection fraction is normal. There are no focal wall motion abnormalities. No regional wall motion abnormalities however during PVCs, significant LV dyssynchrony seen. Normal diastolic function. Right Ventricle: The right ventricle is normal in size and function. Atria: The left atrial size is normal. Right atrial size is normal. There is no Doppler evidence for an interatrial shunt. Mitral Valve: The mitral valve leaflets appear normal. There is no evidence of stenosis, fluttering, or prolapse. There is trace mitral regurgitation. Aortic Valve: The aortic valve is trileaflet. The aortic valve opens well. There is trace aortic regurgitation. Tricuspid Valve: The tricuspid valve leaflets are thin and pliable. There is trace tricuspid regurgitation. The right ventricular systolic pressure is estimated to be at least 28 mmHg based on an estimated right atrial pressure of 3 mm Hg. Pulmonic Valve: The pulmonic valve is not well visualized. There is no pulmonic valvular regurgitation. Great Vessels: The aortic root is normal size. The ascending aorta could not be visualized. The pulmonary is not well visualized. The IVC is of normal diameter and collapses greater than 50% with a sniff. This suggests a low right atrial pressure of 3 mm Hg. Pericardium/ Pleura There is no pericardial effusion. There is no pleural effusion. MMode/2D Measurements & Calculations LVIDd: 4.5 cm LVOT diam: 2.1 cm LVIDs: 2.7 cm Ao root diam: 3.0 cm FS: 39.9 % EPSS: 0.48 cm IVSd: 0.85 cm LVPWd: 0.75 cm LV vaz. diameter/BSA (cm/m^2): 2.6 LV sys. diameter/BSA (cm/m^2): 1.6 LA A2 area: 16.3 cm2 RA long axis: 4.4 cm LA A4 area: 15.4 cm2 RA area: 14.5 cm2 LA length (vol): 5.2 cm RA vol: 40.5 ml LA vol: 41.5 ml RA : 23.3 ml/m2 LA vol index: 23.9 ml/m2 IVC diam: 1.9 cm RVD1 (basal): 3.6 cm RVD2 (mid): 2.9 cm TAPSE: 2.7 cm Doppler Measurements & Calculations Ao V2 max: 133.1 cm/sec LVOT Max Deshawn: 115.3 cm/sec Ao V2 mean: 96.0 cm/sec LV V1 max P.3 mmHg Ao max P.1 mmHg LV V1 VTI: 25.1 cm Ao mean P.0 mmHg KARLA(I,D): 3.3 cm2 Ao V2 VTI: 26.9 cm KARLA(V,D): 3.1 cm2 sev ratio: 0.94 KARLA indexed to BSA (cm^2/m^2): 1.9 MV E max deshawn: 80.0 cm/sec TR max deshawn: 251.8 cm/sec MV A max deshawn: 61.9 cm/sec TR max P.4 mmHg MV E/A: 1.3 PA V2 max: 99.4 cm/sec Med Peak E' Deshawn: 12.2 cm/sec PA V2 mean: 73.2 cm/sec E/E' med: 6.6 PA mean P.3 mmHg Lat Peak E' Deshawn: 11.8 cm/sec PA pr(Accel): 17.3 mmHg E/E' lat: 6.8 E/e' average: 6.7 MV dec time: 0.14 sec SV(OT): 89.0 ml Reading Physician:12:32 PM
== END ==
PROVIDERS: PCP Registered Nurse Diabetes Educator; Referring Provider Registered Nurse Diabetes Educator; Visit Provider Registered Nurse Diabetes Educator
DX: Z00.00 Encounter for general adult medical examination without abnormal findings (principal); I51.7 Cardiomegaly; R00.2 Palpitations
CPT/HCPCS: 93306

== ENCOUNTER → 2025-03-25 07:46 | Outpatient (CLI) | payer BC, SELFPAY | PROVIDERS: PCP Registered Nurse Diabetes Educator; Referring Provider Registered Nurse Diabetes Educator; Visit Provider Registered Nurse Diabetes Educator | DX: R00.2 Palpitations (principal); Z00.00 Encounter for general adult medical examination without abnormal findings | CPT/HCPCS: 93242 ==

== ENCOUNTER 2025-04-07 12:35 | Emergency (ER) | payer BC, SELFPAY ==
[2025-04-07] VITALS (9 sets, daily range): BP systolic 116–145; BP diastolic 63–84; PULSE 78–92; RESP 15–23; TEMP 36.7; O2SAT 100; BMI 27.4
--- NOTE | 2025-04-07 12:40 | DI.RAD.S_ITS ---
PROCEDURE: XR CHEST 1V INDICATIONS: Chest Pain TECHNIQUE: One view of the chest was acquired. COMPARISON: None. FINDINGS: Surgical changes and devices: None. Lungs and pleura: Lungs are clear. No pleural effusions or pneumothorax. Mediastinum: Mediastinal contours appear normal. Heart size is normal. Bones and chest wall: No suspicious bony lesions. Overlying soft tissues appear unremarkable. IMPRESSION: No acute cardiopulmonary abnormality is seen. Dictated by: Ashley Carreon MD, PhD on 04/07/2025 at 13:11 Approved by: Ashley Carreon MD, PhD on 04/07/2025 at 13:11
--- NOTE | 2025-04-07 12:49 | EKG_ITS ---
[address] [address] Test Date: 2025-04-07 Pat Name: Logan Garcia Department: [facility] Room: Gender: Female Tso: Ju : 1980 Requested By: Order Number: [id number] Reading MD: Kenton Richey Measurements Intervals [place] Rate: 92 P: 66 [place]: 142 QRS: 70 QRSD: 86 T: 56 QT: 372 QTc: 460 Interpretive Statements Normal sinus rhythm with sinus arrhythmia Electronically Signed On 04-07-2025 15:10:41 PDT by Kenton Richey
[2025-04-07 13:01] LABS: Add Manual Diff / Slide Review NO; Hematocrit 36.8 % (36-46); Hemoglobin 12.8 g/dL (12.0-16.0); Lymphocytes Absolute Auto 3100 /uL (1100-4500); Mean Corpuscular HGB Conc 34.8 % (30-36); Mean Corpuscular Hemoglobin 29.5 PG (26-34); Mean Corpuscular Volume 84.7 fL (80-100); Platelet Count 375 X10^3/uL (150-400)
[2025-04-07 13:13] LABS: Alanine Aminotransferase 17 IU/L (<35); Albumin 4.9 g/dL (3.5-5.0); Albumin Globulin Ratio 1.6 (1.0-2.8); Alkaline Phosphatase 82 U/L (38-126); Blood Urea Nitrogen 13 mg/dL (7-17); Calcium 9.4 mg/dL (8.4-10.2); Carbon Dioxide 24 mmol/L (22-32); Chloride 104 mmol/L (98-107); Creatine Kinase 56 U/L (30-135); Estimated Glomerular Filt Rate > 60 mL/min (>60); Globulin 3.1 g/dL (1.7-4.1); Glucose 116 mg/dL (70-99); HEMOLYSIS < 15 (0-50); INR 1.0 (0.9-1.3); Lipase 66 U/L (23-300); Magnesium 2.1 mg/dL (1.6-2.3); Potassium 3.6 mmol/L (3.4-5.1); Prothrombin Time 10.9 SECONDS (9.4-12.5); Sodium 138 mmol/L (137-145); Total Protein 8.0 g/dL (6.3-8.2)
[2025-04-07 13:16] LABS: PTT Partial Thromboplastin Tim 30 SECONDS (25.1-36.5)
[2025-04-07 13:26] LABS: NT-proBNP (BNP-Adult 18+) 34 pg/mL (<125); Troponin I < 0.012 ng/mL (0.01-0.034)
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
--- NOTE | 2025-04-07 15:08 | DI.CT.S_ITS ---
PROCEDURE: CT HEAD/BRAIN WO CON INDICATIONS: dizzziness TECHNIQUE: Noncontrast 4.5 mm thick angled axial sections acquired from the foramen magnum to the vertex, with coronal and sagittal reformats. For radiation dose reduction, the following was used: automated exposure control, adjustment of mA and/or kV according to patient size. COMPARISON: None. FINDINGS: Image quality: Diagnostic. CSF spaces: Basal cisterns are patent. No extra-axial fluid collections. Ventricles are normal in size and shape. Brain: No midline shift. No intracranial mass effect or hemorrhage. Silvestre- white matter interface is normal. Skull and face: Calvarium and visualized facial bones are intact, without suspicious lesions. Sinuses: Visualized sinuses and mastoids are clear. IMPRESSION: No acute intracranial pathology. Dictated by: Kalpesh Whitley M.D. on 04/07/2025 at 15:55 Approved by: Kalpesh Whitley M.D. on 04/07/2025 at 15:58
--- NOTE | 2025-04-07 15:08 | DI.CT.S_ITS ---
PROCEDURE: CT ANGIO HEAD AND NECK INDICATIONS: dizziness, recent neck trauma TECHNIQUE: After the administration of intravenous contrast, 1 mm thick sections acquired from the aortic arch through the [place] of [place]. 3-dimensional devbods-tlbbtiydf-jdgtvnnmsy (MIP) and/or volume rendering reformats were acquired of the central intracranial vasculature and neck separately. For radiation dose reduction, the following was used: automated exposure control, adjustment of mA and/or kV according to patient size. COMPARISON: [facility], CT, CT HEAD/BRAIN WO [facility], 04/07/2025, 15:16. FINDINGS: Image quality: Diagnostic. Cerebral CT Angiogram: Internal carotid arteries: No acute findings. Intracranial ICA are patent with no significant stenosis. No occlusion. No aneurysm. Anterior cerebral arteries: Unremarkable. No significant stenosis. No occlusion. No aneurysm. Middle cerebral arteries: Unremarkable. No significant stenosis. No occlusion. No aneurysm. Posterior cerebral arteries: Unremarkable. No significant stenosis. No occlusion. No aneurysm. Basilar artery: Unremarkable. No significant stenosis. No occlusion. No aneurysm. Vertebral arteries: Unremarkable as visualized. Dural venous sinuses: Unremarkable given phase of enhancement. Other: Arterial phase appearance of the brain parenchyma is unremarkable. Neck CT Angiogram: Internal carotid arteries: Unremarkable. No significant stenosis. No dissection or occlusion. Common carotid arteries: Unremarkable. No significant stenosis. No dissection or occlusion. External carotid arteries: Unremarkable. No occlusion. Vertebral arteries: Unremarkable. No significant stenosis. No dissection or occlusion. Aortic Arch and Mediastinum: Partially visualized aortic arch unremarkable without evidence of aneurysm. Origins of the great vessels unremarkable. Other: Arterial phase soft tissues of the neck and chest are unremarkable. IMPRESSION: No significant intracranial arterial abnormality is seen. No significant abnormality is seen within the arteries of the neck. Any quantitative measurements of stenosis were performed using NASCET criteria. Dictated by: Kalpesh Whitley M.D. on 04/07/2025 at 15:58 Approved by: Kalpesh Whitley M.D. on 04/07/2025 at 16:00
[2025-04-07 15:11] LABS: Appearance Urine UA CLEAR; Bilirubin Urine UA NEGATIVE (NEGATIVE); Color Urine UA YELLOW; Glucose Urine UA NEGATIVE (Negative); Ketones Urine UA NEGATIVE (NEGATIVE); Leukocyte Esterase Urine UA NEGATIVE (NEGATIVE); Nitrite Urine UA NEGATIVE (Negative); Occult Blood Urine UA NEGATIVE (Negative); Protein Urine UA NEGATIVE (Negative); Specific Gravity Urine UA 1.010 (1.000-1.035); Urobilinogen Urine UA 0.2 E.U./dL (0.2)
[2025-04-07 15:13] LABS: pH Urine UA 7.5 (4.5-8.0)
[2025-04-07 15:17] LABS: Culture Indicated Urine Cult Not Indicated
== END 2025-04-07 16:35 | disposition home or self-care (01) ==
PROVIDERS: Emergency Provider Emergency Medicine; PCP Registered Nurse Diabetes Educator
DX: R42 Dizziness and giddiness (principal); R07.9 Chest pain, unspecified
CPT/HCPCS: 36415; 70450; 70496; 70498; 71045; 80053; 81001; 82550; 83690; 83735; 83880; 84484; 85025; 85610; 85730; 93005; 99283; 99284; Q9967

== ENCOUNTER → 2025-08-04 09:03 | Outpatient (CLI) | payer BC, SELFPAY ==
--- NOTE | 2025-08-04 09:04 | DI.NM.S_ITS ---
PROCEDURE: NM EXERCISE TREADMILL NON NUC COMPARISON: None. INDICATIONS: Ventricular premature complex FINDINGS: Patient exercised per the standard Kenneth protocol. Total exercise time was 9 minutes and 40 seconds. Test was terminated secondary to fatigue. Maximal heart rate attained is 192 bpm which is 110% of maximum predicted heart rate. Maximum blood pressure [place] 148/[place] [address]. YASHIRA -17%. 9.6 METS. No ischemic changes noted. No arrhythmias present. No chest pains voiced. Normal heart rate and blood pressure response to exercise present. IMPRESSION: 1. Negative exercise treadmill stress test for ischemia. 2. Good exercise capacity. Dictated by: Shaka Hendrickson M.D. on 08/04/2025 at 16:16 Approved by: Shaka Hendrickson M.D. on 08/04/2025 at 16:18
--- OUTSIDE RECORDS SUMMARY | 2025-08-06 14:05 | XMS_ITS | Clinical Summary ---
Author Organization [facility] Address [address] [place] [address] Care Team Providers Care Radio Mechanic Apprentice Name Role Phone Nancy Grove KASIE Primary Care Provider Allergies No known active allergies Medications multivitamin iron-folic acid 27-1 mg tablet 04/17/2021 Acti ve cholecalciferol 25 MCG (1000 UT) capsule Take 1,000 Units by mouth. Active aspirin 81 MG EC tablet Take 81 mg by mouth. Active Active Problems Problem Noted Date Diagnosed Date AMA (advanced maternal age) multigravida 35+, third trimester 04/17/2021 Immunizations Immunization Administration Dates Next Due Influenza trivalent 07/07/2015 Tdap 03/03/2021 Family History Medical History Relation Comments Depression Father Migraine Headaches Father Other Father TIA Stroke Father Depression Mother Migraine Headaches Mother Relation Status Comments Father Mother Social History Tobacco Use Types Packs/Day Years Used Date Smoking Tobacco: Former Cigarettes Smokeless Tobacco: Never Comments:briefly age 19-20 Alcohol Use Standard Drinks/Week Comments Not Currently 0 (1 standard drink = 0.6 oz pur e alcohol) occassional pre Comments No Sex and Gender Information Value Date Recorded Sex Assigned at Not on file Legal Sex Female 8:10 AM PDT Gender Identity Not on file Sexual Orientation Not on file Last Filed Vital Signs Vital Sign Reading Time Taken Comments Blood Pressure 113/62 04/18/2021 2:42 PM PDT Pulse 88 04/18/2021 2:42 PM PDT Temperature - - Respiratory Rate - - Oxygen Saturation 97% 04/18/2021 2:42 PM PDT Inhaled Oxygen Concentration - - Weight 77.2 kg (170 lb 3.2 oz) 04/18/2021 2:42 P M PDT Height 160 cm (5' 3) 04/18/2021 2:42 PM PDT Body Mass Index 30.15 04/18/2021 2:42 PM PDT Plan of Treatment Not on file Insurance [employer] Care Teams Radio Mechanic Apprentice Relationship Specialty Start Date End Date Nancy Grove ARNP [facility] [address] [place] [address] PCP - General Nurse Practitioner 04/11/21
--- OUTSIDE RECORDS SUMMARY | 2025-08-06 14:05 | XMS_ITS | Encounter Summary ---
Author Organization [facility] Address [address] [place] [address] Care Team Providers Care Truck Chauffeur Name Role Phone Connor William GEOFFREY Primary Care Provider [phone] Encounter Details Date Type Department Care Team ([facility] Contact Info) Description 08/05/2025 Results Follow-Up [facility] Cardiology [address], [address] [place] [address] Shaka Hendrickson MD [address] [place] [phone] CVL NON NUCLEAR STRESS TEST TREADMILL Social History Tobacco Use Types Packs/Day Years Used Date Smoking Tobacco: Never Smokeless Tobacco: Never Alcohol Use Standard Drinks/Week Comments Yes 0 (1 standard drink = 0.6 oz pure alcohol) less than the above. very occasional. Comments Unknown Sex and Gender Information Value Date Recorded Sex Assigned at Not on file Legal Sex Female 9:32 AM PDT Gender Identity Not on file Sexual Orientation Not on file documented as of this encounter Plan of Treatment Upcoming Encounters Date Type Department Care Team (Late Contact Info) Description 10/14/2025 9:45 AM PST Office Visit [facility] Cardiology [address], [facility] [place] [place] [address] Shaka Hendrickson MD [address] [place] [phone] documented as of this encounter Visit Diagnoses Not on filedocumented in this encounter Care Teams Truck Chauffeur Relationship Specialty Start Date End Date William Ryan CRNP [address] [place] [address] PCP - General Nurse Practitioner 07/09/25 documented as of this encounter
--- OUTSIDE RECORDS SUMMARY | 2025-08-06 14:06 | XMS_ITS | Encounter Summary ---
Author Organization [facility] Address [address] [place] [address] Care Team Providers Care Flat Locker Name Role Phone William Ryan GEOFFREY Primary Care Provider [phone] Encounter Details Date Type Department Care Team (Late Contact Info) Description 08/05/2025 Orders Only [facility] Cardiology [address], [place] [address] Shaka Hendrickson MD [address] [place] [address] [place] [address] VPC (ventricular premature complex) Social History Tobacco Use Types Packs/Day Years [...] Encounters Date Type Department Care Team (Late st Contact Info) Description 10/14/2025 9:45 AM PST Office Visit [facility] Cardiology [address], [place] [address] Shaka Hendrickson MD [address] [place] [address] [place] [address] documented as of this encounter Procedures Procedure Name Priority Date/Time Associated Diagnosis Comments CVL NON NUCLEAR STRESS TEST TREADMILL Routine 08/04/2025 VPC (ventricular premature complex) documented in this encounter Results * CVL NON NUCLEAR STRESS TEST TREADMILL (08/04/2025) Anatomical Region Laterality Modality N/A Other us Shaka Hendrickson MD [facility] CVL PROCEDURES Final Res ult documented in this encounter Visit Diagnoses Diagnosis VPC (ventricular premature complex) Other premature beats documented in this encounter Care Teams Flat Locker Relationship Specialty Start Date End Date William Ryan CRNP [address], [place] [address] PCP - General Nurse Practitioner 07/09/25 documented as of this encounter
--- OUTSIDE RECORDS SUMMARY | 2025-08-06 14:06 | XMS_ITS | Encounter Summary ---
Author Organization [facility] Address [address] [place] [address] Care Team Providers Care Family And Consumer Sciences Teacher Name Role Phone William Ryan Primary Care Provider [phone] Encounter Details Date Type Department Care Team ([facility] Contact Info) Description 07/06/2025 Abstract [facility] Cardiology [address] [place] [address] Shaka Hendrickson MD [address] [place] [phone] Social History Tobacco Use Types Packs/Day Years Used Date Smoking Tobacco: Never Smokeless Tobacco: Never Comments Unknown Sex and Gender Information Value Date Recorded Sex Assigned at Not on file Legal Sex Female 9:32 AM PDT Gender Identity Not on file Sexual Orientation Not on file documented as of this encounter Functional Status documented as of this encounter Plan of Treatment Upcoming Encounters Date Type Department Care Team ([facility] Contact Info) Description 10/14/2025 9:45 AM PST Office Visit [facility] Cardiology [address] [place] [address] Shaka Hendrickson MD [address] [place] [phone] documented as of this encounter Visit Diagnoses Not on filedocumented in this encounter Care Teams Family And Consumer Sciences Teacher Relationship Specialty Start Date End Date William Ryan CRNP [address], [place] [address] PCP - General Nurse Practitioner 07/09/25 documented as of this encounter
--- OUTSIDE RECORDS SUMMARY | 2025-08-06 14:06 | XMS_ITS | Clinical Summary ---
Author Organization [facility] Address [address] [place] [address] Care Team Providers Care Mba Intern Name Role Phone William Ryan GEOFFREY Primary Care Provider [phone] Allergies No known active allergies Medications cholecalcifero l, vitamin D3, (Vitamin D3) 25 mcg (1,000 unit) capsule Take 1,000 Units by mouth daily Active albuterol HFA (ProAir/Ventol in/Proventil) 90 mcg/actuation inhaler Inhale 2 puffs every 6 hours as needed Active calcium carbonate (TUMS) 200 mg calcium (500 mg) chewable tablet Take 1 tablet by mouth daily Active metoprolol succinate XL (TOPROL-XL) 25 mg 24 hr tablet Take 1 tablet (25 mg total) by mouth nightly 30 tablet 3 5 07/09/20 26 Active Thrivite Rx 29 mg iron- 1 mg tablet 1 07/09/20 25 Discontinued( No Longer Needed, Treatment Complete) aspirin 81 mg EC tablet Take 81 mg by mouth daily 07/09/20 25 Discontinued( No Longer Needed, Treatment Complete) Active Problems No known active problems Encounters Date Type Department Care Team Description 08/05/2025 Results Follow-Up [facility] [place] [address] [place] [address], [address] [place] [address] Shaka Hendrickson MD CVL NON NUCLEAR STRESS TEST TREADMILL 08/05/2025 Orders Only [facility] [place] [id number] [facility], [place] [address] Shaka Hendrickson MD VPC (ventricular premature complex) 07/09/2025 4:00 PM PDT Office Visit [facility] [address], [place] [address] Shaka Hendrickson MD VPC (ventricular premature complex) (Primary Dx) 07/06/2025 Abstract [facility] [address], [place] [address] Shaka Hendrickson MD from Last 3 Months Family History Medical History Relation Comments Cancer Father Hypertension Father Anemia Sister Relation Status Comments Father Alive Sister Alive Social History Tobacco Use Types Packs/Day Years Used Date Smoking Tobacco: Never Smokeless Tobacco: Never Tobacco Cessation:Counseling Given: Not Answered Alcohol Use Standard Drinks/Week Comments Yes 0 [...] Sign Reading Time Taken Comments Blood Pressure 126/68 07/09/2025 3:49 PM PDT Pulse 88 07/09/2025 3:49 PM PDT Temperature - - Respiratory Rate - - Oxygen Saturation 100% 01/13/2021 1:13 PM PDT Inhaled Oxygen Concentration - - Weight 70.3 kg (155 lb) 07/09/2025 3:49 PM PDT Height 160 cm (5' 3) 07/09/2025 3:49 PM PDT Body Mass Index 27.46 07/09/2025 3:49 PM PDT Plan of Treatment Upcoming Encounters Date Type Department Care Team (Late st Contact Info) Description 10/14/2025 9:45 AM PST Office Visit [facility] [address], [place] [address] Shaka Hendrickson MD [address] [place] [address] [place] [id number] Health Maintenance Due Date Last Done Comments Breast Cancer Screening 1979 MMR Vaccines (1 of 1 - Standard series) 1980 Depression Screening (PHQ-2) 1991 Varicella Vaccines (1 of 2 - 13+ 2-dose series) 1992 Hepatitis B Vaccines (1 of 3 - 19+ 3-dose series) 1998 Cervical Cancer Screening Combined Topic 2009 Cervical Cancer-Pap screening 2009 HPV/Cotest 2009 Colorectal Cancer Screening (Colonoscopy) 2024 Colorectal Cancer Screening (FOBT) 2024 Colorectal Cancer Screening (Fecal DNA) 2024 Colorectal Cancer Screening Combined 2024 COVID-19 Vaccine ( season) 2025 08/23/2023, 07/01/2022, 09/07/2021, Additional history exists Influenza Vaccine (#1) 2025 , 07/01/2022, 07/07/2015 DTaP,Tdap,and Td Vaccines (2 - Td or Tdap) 03/03/2031 03/03/2021 RSV Patients Over 60 years OR qualifying ( Patients) (1 - 1-dose 75+ series) 2054 HM Pneumococcal Combined Age 0-49 Aged Out No longer eligible based on patient's age to complete this topic HPV Vaccines Aged Out No longer eligi ble based on patient's age to complete this topic Hepatitis A Vaccines Aged Out No long er eligible based on patient's age to complete this topic IPV Vaccines Aged Out No longer eligi ble based on patient's age to complete this topic Procedures Procedure Name Priority Date/Time Associated Diagnosis Comments CVL NON NUCLEAR STRESS TEST TREADMILL Routine 08/04/2025 VPC (ventricular premature complex) ECG 12-LEAD Routine 07/09/2025 3:56 PM PDT VPC (ventricular premature complex) from Last 3 Months Results * CVL NON NUCLEAR STRESS TEST TREADMILL (08/04/2025) Anatomical Region Laterality Modality N/A Other us Shaka Hendrickson MD RIS [facility] CVL PROCEDURES Final Res ult * ECG 12 Lead (Clinic - Same Day) (07/09/2025 3:56 PM PDT) HR 88 bpm [facility] IECG RR 682 ms [facility] IECG PA 141 ms [facility] IECG QRSD 94 ms [facility] I[facility]G QT 371 ms [facility] I[facility]G QTc 449 ms [facility]G QRS 77 deg [facility] I[facility]G T 36 deg [facility]G Impression - NORMAL ECG - [facility] IECG Impression Sinus rhythm [facility] IECG Impression No previous ECG available for comparison [facility] IECG 07/09/2025 3:56 PM PDT us Shaka Hendrickson MD ECG ORDERABLES Final Result [facility] IECG from Last 3 Months [place] [id number] Care Teams Mba Intern Relationship Specialty Start Date End Date William Ryan CRNP [address] [place] [id number] PCP - General Nurse Practitioner 07/09/25
== END ==
LOC: NUCM 09:03
PROVIDERS: PCP Registered Nurse Diabetes Educator; Referring Provider Internal Medicine; Visit Provider Internal Medicine
DX: I49.3 Ventricular premature depolarization (principal)
CPT/HCPCS: 93017